=== PATIENT | female | born 1970 | race Caucasian/White ===

== ENCOUNTER → 2016-08-06 | Outpatient (CLI) | payer OTHER ==
--- NOTE | 2016-08-06 15:05 | MA ---
Screening Digital Mammogram Clinical Indications: Routine screening. Technique: Standard cephalocaudal and mediolateral oblique projections are obtained. This examinati on is processed by the [facility] computer aided detection system. Comparison: July 09, 2015; July 04, 2014; and studies dating back to March 30, 2011. Breast density: B; There are scattered areas of fibroglandular density. Findings: CAD was reviewed. Within the lower outer left breast, there is a possible developing nodule versus overlapping breast parenchymal tissue. No additional masses are seen within either breast. Th ere are no significant clusters of microcalcifications. The axilla are clear. Impression: Possible developing nodule versus overlapping breast parenchymal tissue lower outer left breast. Recommendation: Compression is recommended of the left breast in CC and mediolateral oblique projecti ons, as well as a 90-degree lateral view for further characterization. If findings are persistent, c onsider ultrasound, as well. Additional imaging evaluation on the left is needed. BI-RADS 0. [facility] will send a result letter to the patient. Negative mammography should not preclude additional workup of a clinically suspicious finding. The patient's information is entered into a reminder system with a target due date for her next mammo gram.
== END ==
LOC: BMCIMAGING 08:48
DX: Z12.31 Encounter for screening mammogram for malignant neoplasm of breast (principal)
CPT/HCPCS: G0202

== ENCOUNTER → 2016-08-18 | Outpatient (CLI) | payer OTHER ==
--- NOTE | 2016-08-18 13:44 | MA ---
Diagnostic Digital Mammogram Left Breast With iCAD Analysis Reason for examination: Evaluate possible developing nodule in the lower-outer left breast noted on t he screening study August 06, 2016. Technique: Oblique and craniocaudal spot compression views are obtained. Also, a true lateral is perf ormed. The examination is processed by the iCAD computer-aided detection system. Findings: A subtle nodular asymmetry does persist on diagnostic assessment and is more pronounced on the craniocaudal view. No suspicious microcalcifications are identified. Impression: Persistent nodular asymmetry in the left breast requires further evaluation, BI-RADS 0. Recommendation: Targeted left breast ultrasound which will be subsequently performed today. A verbal report was given to the patient. [facility] with send a result letter.
--- NOTE | 2016-08-18 14:01 | US ---
Left Breast Ultrasound History: Evaluate persistent small nodule in the outer lower posterior left breast identified on diag nostic mammography performed earlier today. Technique: Longitudinal and transverse images were obtained utilizing a 15 MHz transducer. Color Dop pler evaluation is employed for assessment of vascularity. Findings: No palpable abnormality is identified. Sonographic interrogation of the outer left breast d emonstrates 2 adjacent simple cysts at the 4:00 position 9 cm from the nipple. The largest measures 3 .6 mm in maximum dimension. The simple cysts would correlate with the mammographic abnormality. No ugalde spicious solid lesion is identified. Impression: Benign findings when considering mammographic and sonographic assessment, BI-RADS 2. Recommendation: Resume routine mammographic screening in one year as long as physical examination is negative.. Findings and follow-up recommendations were reviewed with the patient in detail. [facility] will send [facility] result letter to the patient.
== END ==
LOC: BMCIMAGING 12:59
DX: Z03.89 Encounter for observation for other suspected diseases and conditions ruled out (principal)
CPT/HCPCS: G0206

== ENCOUNTER → 2017-08-23 | Outpatient (CLI) | payer OTHER | LOC: BMCIMAGING 14:43 | PROVIDERS: ATTEND Family Medicine | DX: Z12.31 Encounter for screening mammogram for malignant neoplasm of breast (principal) ==

== ENCOUNTER → 2017-09-12 | Outpatient (CLI) | payer OTHER ==
[~2017-09-12] MED LIST: GADOBUTROL 10 ML VIAL IVP ONE
== END ==
LOC: FIMAGING 09:48
PROVIDERS: ATTEND Family Medicine Sports Medicine
DX: M62.830 Muscle spasm of back (principal); M79.9 Soft tissue disorder, unspecified; G95.20 Unspecified cord compression
CPT/HCPCS: A9585

== ENCOUNTER → 2018-11-24 | Outpatient (CLI) | payer OTHER | LOC: BMCIMAGING 08:15 | PROVIDERS: ATTEND Family Medicine | DX: Z12.31 Encounter for screening mammogram for malignant neoplasm of breast (principal) ==